=== PATIENT | male | born 1980 | race Caucasian/White ===

== ENCOUNTER → 2020-10-04 | Outpatient (CLI) | payer OTHER ==
--- NOTE | 2020-10-04 14:45 | RAD ---
INDICATION: Testicular lump COMPARISON: None. TECHNIQUE: Grayscale, color and spectral doppler ultrasound images obtained of the scrotum. FINDINGS: Right Testicle: 47 x 32 x 26 mm. Vascular flow is identified. Left Testicle: 46 x 31 x 22 mm. Vascular flow is identified. Superior to the left testicle there is a 23 x 14 mm hypoechoic structure seen. There is some addition al smaller hypoechoic structure seen on the left. IMPRESSION: * No worrisome intratesticular mass. * There is a hypoechoic masslike structure within the left side of the scrotum. Could be from causes such as cyst or spermatocele. There is not definite blood flow within to suggest a alternative cause such as a venous varix. There is some prominence of the pampiniform plexus on the left as well. Electronically signed by: Sebastián De La Cruz MD (10/04/2020 2:42 PM) [id number]
== END ==
LOC: US 12:58
PROVIDERS: ATTEND Nurse Practitioner Family
DX: N50.89 Other specified disorders of the male genital organs (principal)
CPT/HCPCS: 76870